=== PATIENT | female | born 1960 | race Caucasian/White ===

== ENCOUNTER 2020-10-30 20:00 | Outpatient (CLI) | payer MEDICARE, SELFPAY | END 2020-10-30 20:01 | disposition home or self-care (01) | LOC: SLEEP 10-31 08:34 | PROVIDERS: Family Provider Internal Medicine; Visit Provider Nurse Practitioner Family | DX: G47.33 Obstructive sleep apnea (adult) (pediatric) (principal); R40.0 Somnolence | CPT/HCPCS: 95810 ==

== ENCOUNTER 2020-11-12 12:54 | Outpatient (CLI) | payer MEDICARE, SELFPAY ==
--- NOTE | 2020-11-12 12:59 | XR_ITS ---
WS: [id number] LUMBAR SPINE TECHNIQUE: 3 views of the lumbar spine CLINICAL INFORMATION: DEGENERATIVE DISC DISEASE WITH RADICULOPATHY COMPARISON: None. FINDINGS: Mild lumbar curve convex left. Cholecystectomy clips. Moderate spondylitic changes. Disc space narrow ing worse at L3-L4 L4-L5 and L5-S1. Moderate facet arthropathy L4-L5 and L5-S1. Aortic calcification. Slight anterolisthesis L4 on L5 measuring 4 mm. XR/XR lumbar spine 2-3V* [id number] IMPRESSION: 1. Mild lumbar curve convex left. 2. Disc space narrowing worse at L3-L4 L4-L5 and L5-S1. 3. Moderate facet arthropathy L4-L5 and L5-S1. 4. Grade 1 anterolisthesis L4 on L5 measuring 4 mm.
== END 2020-11-12 12:55 | disposition home or self-care (01) ==
PROVIDERS: PCP Internal Medicine; Visit Provider Internal Medicine
DX: M51.16 Intervertebral disc disorders with radiculopathy, lumbar region (principal); M47.816 Spondylosis without myelopathy or radiculopathy, lumbar region; M47.817 Spondylosis without myelopathy or radiculopathy, lumbosacral region
CPT/HCPCS: 72100

== ENCOUNTER 2021-03-09 20:00 | Outpatient (CLI) | payer MEDICARE, SELFPAY | END 2021-03-09 20:01 | disposition home or self-care (01) | LOC: SLEEP 03-10 07:34 | PROVIDERS: PCP Internal Medicine; Visit Provider Nurse Practitioner Family | DX: G47.33 Obstructive sleep apnea (adult) (pediatric) (principal) | CPT/HCPCS: 95811 ==

== ENCOUNTER 2022-04-26 06:00 | Outpatient (RCR) | payer MEDICARE, SELFPAY | END 2022-05-11 23:59 | disposition home or self-care (01) | LOC: SPT 06:00 | PROVIDERS: PCP Internal Medicine; Visit Provider Internal Medicine | DX: M51.17 Intervertebral disc disorders with radiculopathy, lumbosacral region (principal) | CPT/HCPCS: 97113; 97161 ==

== ENCOUNTER 2022-05-12 06:00 | Outpatient (RCR) | payer MEDICARE, SELFPAY | END 2022-06-11 23:59 | disposition home or self-care (01) | LOC: SPT 06:00 | PROVIDERS: PCP Internal Medicine; Visit Provider Internal Medicine | DX: M51.17 Intervertebral disc disorders with radiculopathy, lumbosacral region (principal) | CPT/HCPCS: 97113 ==

== ENCOUNTER 2022-07-02 11:37 | Emergency (ER) | payer MEDICARE, SELFPAY ==
[2022-07-02] VITALS (39 sets, daily range): BP systolic 121–153; BP diastolic 65–88; PULSE 104–128; RESP 10–52; TEMP 36.9; O2SAT 90–96
--- NOTE | 2022-07-02 11:49 | ECG_ITS ---
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 Measurements Intervals Wayne Rate: 116 P: 12 AR: 163 QRS: -6 QRSD: 95 T: 38 QT: 311 QTc: 433 Interpretive Statements SINUS TACHYCARDIA ABNORMAL RHYTHM ECG Compared to ECG 07/22/2014 23:02:39 Sinus rhythm no longer present Electronically Signed On 07-02-2022 22:07:15 CDT by Lalito Pierson M.D. [id number]
--- NOTE | 2022-07-02 12:04 | XRR_ITS ---
PROCEDURE INFORMATION: Exam: XR Chest Exam date and time: 07/02/2022 12:19 PM Age: 62 years old Clinical indication: Pain; Angina pectoris; Additional info: Cp TECHNIQUE: Imaging protocol: Radiologic exam of the chest. Views: 1 view. COMPARISON: No relevant prior studies available. FINDINGS: Lungs: Unremarkable. No consolidation. Pleural spaces: Unremarkable. No pleural effusion. No pneumothorax. Heart/Mediastinum: Unremarkable. No cardiomegaly. Bones/joints: Unremarkable. XR/XR chest 1V portable [id number] IMPRESSION: No acute findings.
--- NOTE | 2022-07-02 12:27 | PC.NURSE ---
PT PLACED ON CONTINUOUS SPO2, NIBP, AND CM.
[2022-07-02 12:34] LABS: Basophils % 0.4 %; Eosinophils # 0.1 10^3/uL (0.0-0.8); Eosinophils % 2.4 %; Hematocrit 42.3 % (37.0-47.0); Hemoglobin 14.2 g/dL (11.5-15.3); Lymphocytes % 35.6 %; Mean Corpuscular HGB Conc 33.6 g/dL (30.0-36.0); Mean Corpuscular Hemoglobin 27.9 pg (28.0-34.0); Mean Corpuscular Volume 83.1 fl (81-99); Mean Platelet Volume 9.4 fL (7.4-10.4); Monocytes # 0.6 10^3/uL (0.2-0.9); Monocytes % 11.3 %; Neutrophils # 2.74 10^3/uL (1.8-7.7); Neutrophils % 49.9 %; Nucleated Red Blood Cells % 0 %; Platelet Count 260 10^3/cmm (130-400); Red Blood Count 5.09 10^6/uL (4.1-5.3); Red Cell Distribution Width 12.6 % (12.1-15.1); White Blood Count 5.5 10^3/uL (4.0-10.0)
--- NOTE | 2022-07-02 12:44 | ED_ITS ---
HPI - Chest Pain General: Chief Complaint: Chest Pain Stated Complaint: Abnormal EKG, Heaviness in chest History of Present Illness: Patient with a history of breast cancer status post bilateral mastectomy in remission since 2019, diabetes with poor control despite Trulicity and metform in, HLD presents the emergency department with complaint of chest heaviness that started last night. Patient states that for the last 4 days she has had an upper respiratory infection with a dry cough and fever. She went to see her primary care doctor this morning to see if she needed antibiotics since she has a girls trip planned this weekend and did not want to be sick on the trip. Her PCP performed an EKG and was concerned about EKG changes and sent her to the emergency department. She attributes her chest heaviness to her upper respiratory infection. She describes the chest pain as a heaviness that is located in her sternal region, does not radiate, is not exertional, and is not pleuritic. She states it is associated with shortness of breath, denies any associated nausea, vomiting, or diaphoresis. She also endorses associated lightheadedness. She states that her symptoms started last night while she was laying in bed during a coughing fit. She states that her symptoms completely resolved when she put on her CPAP, and are worse when she coughs. No other modifying factors, no other associated symptoms. Review of Systems General: Reports: 10 or more systems reviewed and unremarkable except in HPI and below Physical Exam Const: COMMON NORMALS: no acute distress and patient oriented x3 GENERAL APPEARANCE: cooperative and well kempt NUTRITIONAL APPEARANCE: obese centrally obese ORIENTATION/CONSCIOUSNESS: Yes awake HENMT: COMMON NORMALS: normocephalic, atraumatic, hearing grossly normal bilaterally, external ears normal and Normal external nose present HEAD & SCALP: normocephalic and atraumatic FACE & SINUS: normal facial exam NOSE: Normal external nose present EXTERNAL EAR: Yes external ears normal MOUTH: Normal oral and palatal mucosa present THROAT: posterior oropharynx normal Eye: COMMON NORMALS: Equal, round and reactive pupils present and EOMs intact bilaterally PUPIL: Yes Equal, round and reactive pupils present Neck/C-Spine: COMMON NORMALS: supple GENERAL: Yes normal visual inspection CERVICAL SPINE: No Cervical spine tenderness and No step off deformity Chest: Breast/axilla inspection: Yes Other (Status post bilateral mastectomy) Resp: COMMON NORMALS: normal respiratory effort, No retractions, No use of accessory muscles and clear to auscultation bilaterally AUSCULTATION: clear to auscultation bilaterally Cardio: COMMON NORMALS: regular rhythm and Peripheral pulses 2+ throughout RATE: tachycardic RHYTHM: regular rhythm PERIPHERAL PULSES: Peripheral pulses 2+ throughout GI: COMMON NORMALS: Normal to inspection, nondistended, normoactive bowel madisyn nds present, Soft to palpation and non-tender PALPATION: Yes Soft to palp ation : COMMON NORMALS: Yes no CVA tenderness BLADDER/KIDNEY EXAM: Yes no CVA tenderness Back/Pelvis: COMMON NORMALS: no CVA tenderness and thoracic and lumbar spine normal to inspection THORACIC SPINE/UPPER BACK: Yes normal to inspection LUMBAR SPINE/LOWER BACK: Yes normal to inspection Extremity: COMMON NORMALS: normal to inspection, full ROM, no clubbing, cyanosis or edema and no calf tenderness GENERAL: No clubbing and No cyanosis Neuro: COMMON NORMALS: patient oriented x3, moves all extremities, no focal motor deficits and no sensory deficits noted Psych: COMMON NORMALS: mental status grossly normal, Normal thought process present, cooperative and activity/motor behavior normal APPEARANCE: Yes well kempt ATTITUDE: Yes calm THOUGHT PROCESS: Normal thought process present Skin: COMMON NORMALS: no rashes or lesions noted GENERAL SKIN EXAM: no r ashes or lesions noted Course Reevaluation(s): Reevaluation #1: Patient continues to remain tachycardic, and slightly more tachycardic than previously, despite negative D-dimer, relatively high suspicion for pulmonary embolism, will obtain CT angiogram PE study despite negative D-dimer due to patient being high risk and ongoing tachycardia. We will also start IV fluid bolus, however patient does not clinically appear to be dehydrated. Also she is afebrile, no concern that her tachycardia is a result of elevated temperature. Time: 13:50 Reevaluation #2: Concern for pneumonia on CT, no evidence of PE, will start Rocephin and azithromycin here in the emergency department, patient can be discharged home on amoxicillin. Time: 15:43 Vital Signs: Vital signs: Vital Signs Temperature 98.4 F 07/02/22 11:49 Pulse Rate 117 H 07/02/22 11:44 Respiratory Rate 16 07/02/22 11:44 Blood Pressure 144/75 07/02/22 11:44 Pulse Oximetry 94 07/02/22 11:44 Oxygen Delivery Me thod Room Air 07/02/22 11:44 MDM - Chest Pain Medical Decision Making Despite the fact that the patient is in remission from breast cancer, she is at increased risk for pulmonary embolism especially given her description of her symptoms. Additional considerations include ACS, she is high risk for atypical presentation of ACS given that she is an elderly white female with diabetes. Also considered is pneumothorax given that the patient's symptoms started while coughing. Will perform full work-up. Lab Data 07/02/22 12:10 07/02/22 12:10 Radiology Impressions Chest X-Ray 07/02/22 12:04 IMPRESSION: No acute findings. Chest CTA 07/02/22 13:49 IMPRESSION: 1. Negative for pulmonary embolus. 2. Patchy bibasilar left greater than right infiltrates suspected. 3. Hepatic steatosis. 4. Ascending thoracic aorta somewhat prominent at 3.4 cm. Laboratory Results WBC 5.5 10^3/uL (4.0-10.0) 07/02/22 12:10 RBC 5.09 10^6/uL (4.1-5.3) 07/02/22 12:10 Hgb 14.2 g/dL (11.5-15.3) 07/02/22 12:10 Hct 42.3 % (37.0-47.0) 07/02/22 12:10 MCV 83.1 fl (81-99) 07/02/22 12:10 MCH 27.9 pg (28.0-34.0) L 07/02/22 12:10 MCHC 33.6 g/dL (30.0-36.0) 07/02/22 12:10 RDW 12.6 % (12.1-15.1) 07/02/22 12:10 Plt Count 260 10^3/cmm (130-400) 07/02/22 12:10 MPV 9.4 fL (7.4-10.4) 07/02/22 12:10 Neut % (Auto) 49.9 % 07/02/22 12:10 Lymph % (Auto) 35.6 % 07/02/22 12:10 [place] % (Auto) 11.3 % 07/02/22 12:10 Eos % (Auto) 2.4 % 07/02/22 12:10 Baso % (Auto) 0.4 % 07/02/22 12:10 Neut # (Auto) 2.74 10^3/uL (1.8-7.7) 07/02/22 12:10 Lymph # (Auto) 2.0 10^3/uL (0.8-4.8) 07/02/22 12:10 [place] # (Auto) 0.6 10^3/uL (0.2-0.9) 07/02/22 12:10 Eos # (Auto) 0.1 10^3/uL (0.0-0.8) 07/02/22 12:10 Baso # (Auto) 0.0 10^3/uL (0.0-0.1) 07/02/22 12:10 Nucleated RBC % (auto) 0 % 07/02/22 12:10 Nucleated RBCs # 0.0 /100WBC 07/02/22 12:10 PT 12.40 SECONDS (12.1-14.9) 07/02/22 12:10 INR 0.90 (0.8-1.2) 07/02/22 12:10 APTT 27.8 SECONDS (23.9-36.7) 07/02/22 12:10 D-Dimer 0.38 ug/mIFEU (0-0.59) 07/02/22 12:10 Sodium 132 mmol/L (136-145) L 07/02/22 12:10 Potassium 3.5 mmol/L (3.5-5.1) 07/02/22 12:10 Chloride 93 mmol/L (98-107) L 07/02/22 12:10 Carbon Dioxide 25 mmol/L (22-29) 07/02/22 12:10 Anion Gap 17.5 (5-19) 07/02/22 12:10 BUN 7 mg/dL (8-23) L 07/02/22 12:10 Creatinine 0.7 mg/dL (0.5-0.9) 07/02/22 12:10 GFR Calculation 85.4 mL/min (90-130) L 07/02/22 12:10 Glucose 158 mg/dL (65-115) H 07/02/22 12:10 Calculated Osmolality 275 mOsm/kg (285-295) L 07/02/22 12:10 Calcium 9.0 mg/dL (8.5-10.5) 07/02/22 12:10 Total Bilirubin 0.3 mg/dL (0.15-1.2) 07/02/22 12:10 AST 33 U/L (0-32) H 07/02/22 12:10 ALT 42 U/L (0-33) H 07/02/22 12:10 Alkaline Phosphatase 115 U/L (35-105) H 07/02/22 12:10 Troponin T Baseline 6 ng/L (0-10) 07/02/22 12:10 Troponin T 120 Minute 6.00 ng/L (0-10) 07/02/22 14:45 Delta Troponin T 0 ABS# (0-10) 07/02/22 14:45 NT-Pro-B Natriuret Pep 36 pg/mL (0-125) 07/02/22 12:10 Total Protein 7.4 g/dL (6.6-8.7) 07/02/22 12:10 Albumin 4.4 g/dL (3.5-5.2) 07/02/22 12:10 Globulin 3.0 g/dL (1.3-4.6) 07/02/22 12:10 Urine Color Yellow (Yellow) 07/02/22 12:24 Urine Appearance Clear (CLEAR) 07/02/22 12:24 Urine pH 6 (5-7) 07/02/22 12:24 Ur Specific [place] 1.015 (1.005-1.030) 07/02/22 12:24 Urine Protein Neg (Negative) 07/02/22 12:24 Urine Glucose (UA) Trace (Normal) H 07/02/22 12:24 Urine Ketones Negative (Negative) 07/02/22 12:24 Urine Blood Neg (Negative) 07/02/22 12:24 Urine Nitrate Negative (Negative) 07/02/22 12:24 Urine Bilirubin Neg (Negative) 07/02/22 12:24 Urine Urobilinogen Neg mg/dL (Negative) 07/02/22 12:24 Ur Leukocyte Esterase Negative (Negative) 07/02/22 12:24 Influenza Type A Ag negative (Negative) 07/02/22 12:15 Influenza Type B Ag negative (Negative) 07/02/22 12:15 SARS-CoV-2 Ag (Rapid) negative (Negative) 07/02/22 12:15 Discharge Plan Discharge Patient Disposition: Home Clinical Impression: Chest pain Qualifiers: Chest pain type: unspecified Qualified Code(s): R07.9 - Chest pain, unspecified Pneumonia Qualifiers: Pneumonia type: due to unspecified organism Laterality: bilateral Lung location: unspecified part of lung Qualified Code(s): J18.9 - Pneumonia, unspecified organism Condition: Stable Prescriptions: New amoxicillin 500 mg tablet 1,000 mg PO TID 5 Days Qty: 30 0RF No Action atorvastatin 40 mg tablet 40 mg PO QPM glyburide 5 mg tablet 5 mg PO DAILY pantoprazole 40 mg tablet,delayed release (DR/EC) 40 mg PO DAILY gabapentin 300 mg capsule See Rx Instructions .ROUTE .COMPLEX Rx Instructions: 300 mg qam and 600 mg qpm hydrochlorothiazide 25 mg tablet 25 mg PO DAILY benazepril 10 mg tablet 10 mg PO DAILY metformin 500 mg tablet extended release 24 hr 500 mg PO BID Trulicity 3 mg/0.5 mL pen injector 3 mg SUBCUT Q7D Rx Instructions: ON TUESDAY Aspir-81 81 mg Tablet,Delayed Release (Dr/Ec) 81 mg PO DAILY potassium citrate 99 mg Capsule 99 mg PO DAILY PRN (Reason: leg cramps) Discharge Orders: Discharge ED (Routine); Ordered 07/02/22 Ordered By: Alvin Urbina Referrals: Juana Kimball MD [Primary Care Provider] - 1-3 days RAZA Pandya [Emergency Department] - (as needed) Patient Instructions: Chest Pain (ED), Pneumonia (ED) 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
[2022-07-02 12:48] LABS: Add Urine Microscopic? NO; Charge for UA Resulting for Rev
[2022-07-02 12:48] LABS: Influenza A by IFA negative (Negative); Influenza B by IFA negative (Negative); SARS Covid-2 Antigen negative (Negative)
[2022-07-02 12:54] LABS: Bilirubin Urine Neg (Negative); Blood Urine Neg (Negative); Glucose Urine UA Trace (Normal); Ketones Urine Negative (Negative); Leukocyte Esterase Urine Negative (Negative); Nitrate Urine Negative (Negative); Protein Urine Neg (Negative); Specific Gravity, Urine 1.015 (1.005-1.030); Urine Appearance Clear (CLEAR); Urine Color Yellow (Yellow); Urobilinogen Urine Neg (Negative); pH Urine 6 (5-7)
[2022-07-02 12:56] LABS: Partial Thromboplastin Time 27.8 SECONDS (23.9-36.7)
[2022-07-02 12:58] LABS: D Dimer 0.38 ug/mIFEU (0-0.59)
[2022-07-02 12:59] LABS: Troponin(5th) Baseline 6 ng/L (0-10)
[2022-07-02 13:08] LABS: Alanine Aminotransferase 42 U/L (0-33); Albumin Level 4.4 g/dL (3.5-5.2); Alkaline Phosphatase 115 U/L (35-105); Anion Gap 17.5 (5-19); Aspartate Amino Transferase 33 U/L (0-32); Blood Urea Nitrogen 7 mg/dL (8-23); Carbon Dioxide 25 mmol/L (22-29); Chloride 93 mmol/L (98-107); Glomerular Filtration Rate 85.4 mL/min (90-130); Glucose 158 mg/dL (65-115); NT Pro B Type Natriuretic Pept 36 pg/mL (0-125); Osmolality Calculated 275 mOsm/kg (285-295); Potassium 3.5 mmol/L (3.5-5.1); Sodium 132 mmol/L (136-145); Total Bilirubin 0.3 mg/dL (0.15-1.2); Total Protein 7.4 g/dL (6.6-8.7)
--- NOTE | 2022-07-02 13:49 | CTR_ITS ---
PROCEDURE INFORMATION: Exam: CTA Chest With Contrast Exam date and time: 07/02/2022 1:57 PM Age: 62 years old Clinical indication: Other: Tachycardia; Prior surgery; Surgery type: Bi mastectomy; Additional info: High risk for pe, neg dimer TECHNIQUE: Imaging protocol: Computed tomographic angiography of the chest with contrast. 3D rendering (Not supervised by radiologist): MIP and/or 3D reconstructed images were created by the technologist. Radiation optimization: All CT scans at this facility use at least one of these dose optimization techniques: automated exposure control; mA and/or kV adjustment per patient size (includes targeted exams where dose is matched to clinical indication); or iterative reconstruction. Contrast material: OMNI 350; Contrast volume: 70 ml; Contrast route: INTRAVENOUS (IV); REPORTING DATA: Count of CT and Cardiac NM exams in prior 12 months: This patient has received 0 known CTs and 0 known cardiac nuclear medicine studies in the 12 months prior to the current study. COMPARISON: CR XR chest 1V portable [id number] 07/02/2022 12:19 PM RADIATION DOSE METRICS: Total DLP (mGy-cm): 335.47 FINDINGS: Pulmonary arteries: Normal. No pulmonary emboli. Aorta: Ascending thoracic aorta somewhat prominent at 3.4 cm. Lungs: Patchy bibasilar left greater than right infiltrates suspected. Pleural spaces: Unremarkable. No pneumothorax. No pleural effusion. Heart: Unremarkable. No cardiomegaly. No pericardial effusion. Lymph nodes: Unremarkable. No enlarged lymph nodes. Liver: Hepatic steatosis. Bones/joints: Unremarkable. No acute fracture. Soft tissues: Unremarkable. CT/CT angio chest PE protcl [id number] IMPRESSION: 1. Negative for pulmonary embolus. 2. Patchy bibasilar left greater than right infiltrates suspected. 3. Hepatic steatosis. 4. Ascending thoracic aorta somewhat prominent at 3.4 cm.
[2022-07-02] MEDS: iohexol 350 mg/mL 500 mL Btl (per mL) IV (13:59)
[2022-07-02] MEDS: lactated ringers 1,000 ML 999 ML IV (14:25)
[2022-07-02 15:33] LABS: Troponin 5 2HR Delta 0 ABS# (0-10)
[2022-07-02] MEDS: cefTRIAXone 1,000 MG in sodium chloride 0.9% (plus) 50 ML 100 MG IV (16:26)
[2022-07-02] MEDS: azithromycin 250 mg Tablet 500 MG PO (16:26)
== END 2022-07-02 16:47 | disposition home or self-care (01) ==
PROVIDERS: Emergency Provider Emergency Medicine; PCP Internal Medicine
DX: R07.9 Chest pain, unspecified (principal); J18.9 Pneumonia, unspecified organism; Z79.85 Long-term (current) use of injectable non-insulin antidiabetic drugs; Z79.84 Long term (current) use of oral hypoglycemic drugs; Z79.82 Long term (current) use of aspirin; Z20.822 Contact with and (suspected) exposure to COVID-19
CPT/HCPCS: 71045; 71275; 80053; 81003; 83880; 84484; 85025; 85378; 85610; 85730; 87426; 87804; 93005; 96374; 99285; J0696; J7120; Q0144; Q9967

== ENCOUNTER 2022-11-21 02:20 | Emergency (ER) | payer MEDICARE, SELFPAY ==
[2022-11-21 02:40] VITALS: BP 132/104; PULSE 115; RESP 18; TEMP 36.4; O2SAT 100; BMI 37.0
[2022-11-21 03:48] VITALS: BP 125/94; PULSE 97; RESP 16; O2SAT 99
[2022-11-21 03:53] VITALS: RESP 18
[2022-11-21] MEDS: ondansetron 2 mg/ML SDV 2 mL 4 MG IVP (03:53)
[2022-11-21] MEDS: morphine 4 mg/mL SDV 1 mL IVP ×2 (03:53→05:18)
[2022-11-21 04:12] LABS: Add Urine Microscopic? NO; Charge for UA Resulting for Rev
[2022-11-21 04:16] LABS: Basophils % 0.3 %; Eosinophils # 0.4 10^3/uL (0.0-0.8); Eosinophils % 3.3 %; Hematocrit 33.7 % (36-47); Lymphocytes # 2.8 10^3/uL (0.8-4.8); Lymphocytes % 24.1 %; Mean Corpuscular HGB Conc 33.2 g/dL (30-55); Mean Corpuscular Hemoglobin 28.1 pg (27-33); Mean Corpuscular Volume 84.5 fl (85-98); Mean Platelet Volume 8.3 fL (7.4-10.4); Monocytes # 0.5 10^3/uL (0.2-0.9); Monocytes % 4.5 %; Neutrophils # 7.73 10^3/uL (1.8-7.7); Neutrophils % 66.3 %; Nucleated Red Blood Cells % 0 %; Platelet Count 473 10^3/cmm (157-399); Red Blood Count 3.99 10^6/uL (3.85-5.65); Red Cell Distribution Width 13.7 % (12.1-15.1); White Blood Count 11.68 10^3/uL (3.29-11.43)
[2022-11-21 04:30] LABS: Alanine Aminotransferase 32 U/L (0-33); Albumin Level 4.3 g/dL (3.5-5.2); Alkaline Phosphatase 133 U/L (35-105); Anion Gap 14.7 (5-19); Aspartate Amino Transferase 25 U/L (0-32); Blood Urea Nitrogen 14 mg/dL (8-23); C Reactive Protein 9.1 mg/L (0.0-4.9); Calcium 9.4 mg/dL (8.5-10.5); Carbon Dioxide 31 mmol/L (22-29); Chloride 89 mmol/L (98-107); Erythrocyte Sedimentation Rate 12 mm/hr (0-15); Globulin 3.1 g/dL (1.3-4.6); Glomerular Filtration Rate 73.2 mL/min (90-130); Glucose 120 mg/dL (65-115); Osmolality Calculated 274 mOsm/kg (285-295); Potassium 3.7 mmol/L (3.5-5.1); Sodium 131 mmol/L (136-145); Total Bilirubin 0.3 mg/dL (0.15-1.2); Total Protein 7.4 g/dL (6.6-8.7)
[2022-11-21 04:30] LABS: Bilirubin Urine Neg (Negative); Blood Urine Neg (Negative); Glucose Urine UA Norm (Normal); Ketones Urine Negative (Negative); Leukocyte Esterase Urine Negative (Negative); Nitrate Urine Negative (Negative); Protein Urine Neg (Negative); Specific Gravity, Urine 1.005 (1.005-1.030); Urine Appearance Clear (CLEAR); Urine Color Colorless (Yellow); Urobilinogen Urine Neg (Negative); pH Urine 7 (5-7)
[2022-11-21 04:48] VITALS: BP 115/78; PULSE 98; RESP 16; O2SAT 95
[2022-11-21 05:18] VITALS: BP 145/95; PULSE 99; RESP 16; RESP 18; O2SAT 96
[2022-11-21] MEDS: ketorolac 30 mg/mL INJ IVP (05:19)
[2022-11-21 05:25] VITALS: BP 135/103; PULSE 95; RESP 16; O2SAT 98
--- NOTE | 2022-11-21 05:39 | ED_ITS ---
HPI - Back Pain/Injury General: Chief Complaint: Back Pain/Injury Stated Complaint: Back pain, post surgery 11/08 Time Seen by Provider: 11/21/22 03:09 History of Present Illness: 62-year-old female who is status post lumbar fusion surgery on 11/08. She is experienced a steady increase in pain over the last 2 days. She has burning sensation in her left thigh. She denies fever. No loss of function of bowel or bladder. No weakness. She has increased her activity, which she relates to the increase in pain. Hydrocodone was not working at home. Associated symptoms: Deny abdominal pain, chills, fever(s), nausea or vomiting Review of Systems Const: Denies: fever(s), chills or body aches Eyes: Denies: change in vision Card: Denies: chest pain or palpitations Resp: Denies: dyspnea, productive cough, non-productive cough or wheezing GI: Denies: abdominal pain, nausea, vomiting, diarrhea or hematochezia : Denies: difficulty voiding Skin/Breast: Denies: rash Neuro: Denies: headache(s) or weakness in extremities Physical Exam Const: COMMON NORMALS: no acute distress GENERAL APPEARANCE: cooperative; not ill appearing and not frail appearing HENMT: COMMON NORMALS: normocephalic, atraumatic and Normal external nose present HEAD & SCALP: normocephalic and atraumatic FACE & SINUS: normal facial exam and face symmetric NOSE: Normal external nose present Eye: COMMON NORMALS: Equal, round and reactive pupils present and EOMs intact bilaterally PUPIL: Yes Equal, round and reactive pupils present Neck/C-Spine: GENERAL: Yes trachea midline Chest: CHEST: Yes Symmetrical chest wall rise Resp: COMMON NORMALS: normal respiratory effort, No retractions, No use of accessory muscles and clear to auscultation bilaterally AUSCULTATION: clear to auscultation bilaterally Cardio: COMMON NORMALS: regular rate and regular rhythm RATE: regular rate RHYTHM: regular rhythm GI: COMMON NORMALS: Normal to inspection, nondistended, normoactive bowel sounds present Back/Pelvis: OTHER: Examination the lumbar spine reveals minimal tenderness. Incisions are closed, healed without redness/cellulitis or drainage. Extremity: COMMON NORMALS: no pedal edema Neuro: TICO COMA SCALE: document GCS findings [place] coma scale eye opening: Spontaneous [place] coma scale verbal response: Orientated [place] coma scale motor response: Obey commands Am[place] coma scale total score: 15 SENSORY EXAM: Yes extremities (intact) Psych: COMMON NORMALS: speech normal SPEECH: Yes normal speech Skin: COMMON NORMALS: no rashes or lesions noted GENERAL SKIN EXAM: no rashes or lesions noted Course Vital Signs: Vital signs: Vital Signs Temperature 97.6 F 11/21/22 02:40 Pulse Rate 95 11/21/22 05:25 Respiratory Rate 16 11/21/22 05:25 Blood Pressure 135/103 11/21/22 05:25 Pulse Oximetry 98 11/21/22 05:25 Oxygen Delivery Me thod Room Air 11/21/22 04:48 MDM - Back Pain/Injury Medical Decision Making Patient's pain is controlled after 4 mg of morphine IV. Her hemoglobin is 11.2. White blood cell count is 11.7. Her inflammatory markers are normal. Other laboratory is not remarkable. Urinalysis is negative. With improvement in her symptoms, no toxic signs on exam or laboratory, she will be discharged. She has a follow-up appointment with her surgeon day after tomorrow. She knows to return in the meantime for any worsening symptoms. She will stop her hydrocodone. She will be prescribed oxycodone 7.5. Labs 11/21/22 03:57 11/21/22 03:57 Laboratory Results WBC 11.68 10^3/uL (3.29-11.43) H 11/21/22 03:57 RBC 3.99 10^6/uL (3.85-5.65) 11/21/22 03:57 Hgb 11.20 g/dL (11.27-16.99) L 11/21/22 03:57 Hct 33.7 % (36-47) L 11/21/22 03:57 MCV 84.5 fl (85-98) L 11/21/22 03:57 MCH 28.1 pg (27-33) 11/21/22 03:57 MCHC 33.2 g/dL (30-55) 11/21/22 03:57 RDW 13.7 % (12.1-15.1) 11/21/22 03:57 Plt Count 473 10^3/cmm (157-399) H 11/21/22 03:57 MPV 8.3 fL (7.4-10.4) 11/21/22 03:57 Neut % (Auto) 66.3 % 11/21/22 03:57 Lymph % (Auto) 24.1 % 11/21/22 03:57 [place] % (Auto) 4.5 % 11/21/22 03:57 Eos % (Auto) 3.3 % 11/21/22 03:57 Baso % (Auto) 0.3 % 11/21/22 03:57 Neut # (Auto) 7.73 10^3/uL (1.8-7.7) H 11/21/22 03:57 Lymph # (Auto) 2.8 10^3/uL (0.8-4.8) 11/21/22 03:57 [place] # (Auto) 0.5 10^3/uL (0.2-0.9) 11/21/22 03:57 Eos # (Auto) 0.4 10^3/uL (0.0-0.8) 11/21/22 03:57 Baso # (Auto) 0.0 10^3/uL (0.0-0.1) 11/21/22 03:57 Nucleated RBC % (auto) 0 % 11/21/22 03:57 Nucleated RBCs # 0.0 /100WBC 11/21/22 03:57 ESR 12 mm/hr (0-15) 11/21/22 03:57 Sodium 131 mmol/L (136-145) L 11/21/22 03:57 Potassium 3.7 mmol/L (3.5-5.1) 11/21/22 03:57 Chloride 89 mmol/L (98-107) L 11/21/22 03:57 Carbon Dioxide 31 mmol/L (22-29) H 11/21/22 03:57 Anion Gap 14.7 (5-19) 11/21/22 03:57 BUN 14 mg/dL (8-23) 11/21/22 03:57 Creatinine 0.8 mg/dL (0.5-0.9) 11/21/22 03:57 GFR Calculation 73.2 mL/min (90-130) L 11/21/22 03:57 Glucose 120 mg/dL (65-115) H 11/21/22 03:57 Calculated Osmolality 274 mOsm/kg (285-295) L 11/21/22 03:57 Calcium 9.4 mg/dL (8.5-10.5) 11/21/22 03:57 Total Bilirubin 0.3 mg/dL (0.15-1.2) 11/21/22 03:57 AST 25 U/L (0-32) 11/21/22 03:57 ALT 32 U/L (0-33) 11/21/22 03:57 Alkaline Phosphatase 133 U/L (35-105) H 11/21/22 03:57 C-Reactive Protein 9.1 mg/L (0.0-4.9) H 11/21/22 03:57 Total Protein 7.4 g/dL (6.6-8.7) 11/21/22 03:57 Albumin 4.3 g/dL (3.5-5.2) 11/21/22 03:57 Globulin 3.1 g/dL (1.3-4.6) 11/21/22 03:57 Urine Color Colorless (Yellow) 11/21/22 03:50 Urine Appearance Clear (CLEAR) 11/21/22 03:50 Urine pH 7 (5-7) 11/21/22 03:50 Ur Specific [place] 1.005 (1.005-1.030) 11/21/22 03:50 Urine Protein Neg (Negative) 11/21/22 03:50 Urine Glucose (UA) Norm (Normal) 11/21/22 03:50 Urine Ketones Negative (Negative) 11/21/22 03:50 Urine Blood Neg (Negative) 11/21/22 03:50 Urine Nitrate Negative (Negative) 11/21/22 03:50 Urine Bilirubin Neg (Negative) 11/21/22 03:50 Urine Urobilinogen Neg mg/dL (Negative) 11/21/22 03:50 Ur Leukocyte Esterase Negative (Negative) 11/21/22 03:50 Discharge Plan Discharge Patient Disposition: Home Clinical Impression: Lumbar radiculopathy, Postoperative back pain Condition: Stable Prescriptions: New Percocet 7.5-325 mg tablet 1 tab PO Q6H PRN (Reason: pain) Qty: 10 0RF No Action atorvastatin 40 mg tablet 40 mg PO QPM glyburide 5 mg tablet 5 mg PO DAILY pantoprazole 40 mg tablet,delayed release (DR/EC) 40 mg PO DAILY gabapentin 300 mg capsule See Rx Instructions .ROUTE .COMPLEX Rx Instructions: 300 mg qam and 600 mg qpm hydrochlorothiazide 25 mg tablet 25 mg PO DAILY benazepril 10 mg tablet 10 mg PO DAILY metformin 500 mg tablet extended release 24 hr 500 mg PO BID Trulicity 3 mg/0.5 mL pen injector 3 mg SUBCUT Q7D Rx Instructions: ON TUESDAY Aspir-81 81 mg Tablet,Delayed Release (Dr/Ec) 81 mg PO DAILY potassium citrate 99 mg Capsule 99 mg PO DAILY PRN (Reason: leg cramps) Discharge Orders: Discharge ED (Routine); Ordered 11/21/22 Ordered By: Keven Heck Referrals: Juana Kimball MD [Primary Care Provider] - Patient Instructions: Opioid Safety, Pain Management Activity Restrictions/Additional Instructions: Return for fever greater than 100, vomiting, worsening pain despite treatment, significant weakness, other concerning symptoms. Keep your appointment as scheduled on Tuesday with your surgeon. Let them know you were seen here. 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
== END 2022-11-21 05:33 | disposition home or self-care (01) ==
PROVIDERS: Emergency Provider Emergency Medicine; PCP Internal Medicine
DX: G89.18 Other acute postprocedural pain (principal); M54.16 Radiculopathy, lumbar region; Z98.1 Arthrodesis status
CPT/HCPCS: 80053; 81003; 85025; 85651; 86140; 96374; 96375; 96376; 99284; J1885; J2270; J2405

== ENCOUNTER → 2023-11-03 10:15 | Outpatient (BNVA) | payer MEDICARE, SELFPAY | PROVIDERS: PCP Internal Medicine; Visit Provider Specialist | DX: R20.0 Anesthesia of skin (principal); R20.2 Paresthesia of skin; G56.01 Carpal tunnel syndrome, right upper limb | CPT/HCPCS: 95910 ==

== ENCOUNTER → 2023-12-27 09:05 | Outpatient (BNVA) | payer MEDICARE, SELFPAY | PROVIDERS: PCP Internal Medicine; Visit Provider Student in an Organized Health Care Education/Training Program | DX: G56.03 Carpal tunnel syndrome, bilateral upper limbs (principal) | CPT/HCPCS: 73130; 99204 ==

== ENCOUNTER 2024-02-23 06:54 | Day surgery (SDC) | payer MEDICARE, SELFPAY ==
[2024-02-23] VITALS (7 sets, daily range): BP systolic 91–130; BP diastolic 59–78; PULSE 92–121; RESP 17–20; TEMP 37–37.2; O2SAT 92–94; BMI 38.2
[2024-02-23] MEDS: sodium chloride 0.9% 1,000 ML 30 ML IV (07:38)
[2024-02-23] MEDS: ketorolac 30 mg/mL INJ IVP (07:38)
[2024-02-23] MEDS: acetaminophen 1,000 MG/100 ML PIGGYBACK 400 MG IV (07:39)
--- NOTE | 2024-02-23 07:42 | P.HP_ITS ---
Same Day Surgery H&P Indication for Procedure/HPI DATE OF PROCEDURE: February 23, 2024 CHIEF COMPLAINT/INDICATIONFOR SURGICAL PROCEDURE: Right carpal tunnel syndrome PREOP DIAGNOSIS: Right carpal tunnel syndrome PLANNED PROCEDURE: Operation Date: 02/23/24 08:30 Proposed Procedures p Carpal Tunnel Release(Right) - Jose Reid DO Medications/Allergies* Home Medications Medication Instructions Recorded Confirmed Type aspirin 81 mg tablet,delayed 81 mg PO DAILY 07/02/22 02/22/24 History release atorvastatin 40 mg tablet 40 mg PO QPM 07/02/22 02/22/24 History benazepril 10 mg tablet 10 mg PO DAILY 07/02/22 02/22/24 History gabapentin 300 mg capsule See Rx Instructions .Route .COMPLEX 07/02/22 02/22/24 History glyburide 5 mg tablet 5 mg PO DAILY 07/02/22 02/22/24 History hydrochlorothiazide 25 mg tablet 25 mg PO DAILY 07/02/22 02/22/24 History metformin 500 mg tablet,extended 500 mg PO BID 07/02/22 02/22/24 History release 24 hr pantoprazole 40 mg tablet,delayed 40 mg PO DAILY 07/02/22 02/22/24 History release potassium citrate 99 mg capsule 99 mg PO DAILY PRN leg cramps 07/02/22 02/22/24 History semaglutide 0.25 mg or 0.5 mg (2 0.25 mg SUBCUT .WEEKLY 12/27/23 02/22/24 History mg/3 mL) subcutaneous pen injector (Ozempic) Allergies/Adverse Reactions Allergy/AdvReac Type Severity Reaction Status Date / Time No Known Allergies Allergy Verified 01/31/24 12:28 Current Medications: Generic Name Dose Route Start Last Admin Trade Name Freq PRN Reason Stop Dose Admin Sodium Chloride 1,000 mls @ 30 mls/hr 02/23/24 07:15 02/23/24 07:38 Sodium Chloride 0.9% IV 02/24/24 07:14 30 mls/hr .Q24H NITHIN Administration Pertinent History/Comorbid Conditions* Social History Smoking and tobacco/nicotine status: never used tobacco/nicotine Pertinent Exam Findings alert, oriented x 3, operative site marked and procedure specific exam findings Please refer to detailed orthopedic examination on 12/26/2023 Bilateral upper extremity exam: Normal C-spine ROM? No pain. Negative Spurling's Negative Tinel's @ shoulder. Normal ROM Negative Tinel's @ elbow. Normal ROM Positive median compression test, bilaterally Positive Tinel's, bilaterally Positive Phalen's bilaterally. Thenar weakness bilaterally. Subtle atrophy noted, right No atrophy noted, left No Intrinsic atrophy noted bilaterally. Good intrinsic strength. Recommendations Surgery/Procedure today Other Plans: Plan to proceed to the OR today for right carpal tunnel release. Patient understands the ins and outs procedure the risk benefits complication alternatives surgery and through shared decision making lacks proceed with surgical intervention. All questions answered at this time. Coding Level of Care Code Acute Code for [facility] Mariel
--- NOTE | 2024-02-23 07:57 | P.ANESASSM_ITS ---
Pre-Anesthetic Assessment Height/Weight: Height 5 ft Weight 196 lb Temp Pulse Resp BP Pulse Ox O2 Del Method 98.9 F 121 H 20 H 130/78 94 Room Air 02/23/24 07:21 02/23/24 07:21 02/23/24 07:21 02/23/24 07:21 02/23/24 07:21 02/23/24 07:28 Preop Diagnosis: Right carpal tunnel syndrome Operation Date: 02/23/24 08:30 Proposed Procedures p Carpal Tunnel Release(Right) - Jose Reid, DO Was Beta Axel taken within 24 hours: N/A Was Clonidine taken within 24 hours: N/A Last intake: Intake Last Liquid Date 02/22/24 Last Liquid Time 22:00 Last Solid Date 02/22/24 Last Solid Time 10:00 Social No alcohol and No tobacco Exam alert, oriented x 3, clear to auscultation bilaterally and regular rate & rhythm Airway Submandibular: within normal limits Cervical ROM: within normal limits Mallampati: Class II Dentition: full Comments: Comments: Few missing teeth, denies any loose Anesthetic Plan ASA status: 3 Anesthesia: MAC Other: No prior issues with anesthesia, previous procedure was canceled due to patient taking her semaglutide NPO since yesterday History of type 2 diabetes on metformin and semaglutide. Has not taken this in the past month resulting in a BS of 209 today Hypertension on HCTZ and benazepril Patient does note a dry cough the last few days, denies any fevers/chills or SOB Prior EKG showing sinus tachycardia METs greater than 4 Plan for MAC anesthetic with local via surgeon Medications/Allergies Home Medications Medication Instructions Recorded Confirmed Last Taken Type aspirin 81 mg tablet,delayed 81 mg PO DAILY 07/02/22 02/22/24 02/01/24 History release atorvastatin 40 mg tablet 40 mg PO QPM 07/02/22 02/22/24 02/14/24 History benazepril 10 mg tablet 10 mg PO DAILY 07/02/22 02/22/24 02/14/24 History gabapentin 300 mg capsule See Rx Instructions .Route .COMPLEX 07/02/22 02/22/24 02/15/24 History glyburide 5 mg tablet 5 mg PO DAILY 07/02/22 02/22/24 02/14/24 History hydrochlorothiazide 25 mg tablet 25 mg PO DAILY 07/02/22 02/22/24 02/15/24 History metformin 500 mg tablet,extended 500 mg PO BID 07/02/22 02/22/24 02/14/24 History release 24 hr pantoprazole 40 mg tablet,delayed 40 mg PO DAILY 07/02/22 02/22/24 02/15/24 History release potassium citrate 99 mg capsule 99 mg PO DAILY PRN leg cramps 07/02/22 02/22/24 01/05/24 History semaglutide 0.25 mg or 0.5 mg (2 0.25 mg SUBCUT .WEEKLY 12/27/23 02/22/24 01/29/24 History mg/3 mL) subcutaneous pen injector ([employer]) Allergies Allergy/AdvReac Type Severity Reaction Status Date / Time No Known Allergies Allergy Verified 01/31/24 12:28 Current Medications Generic Name Dose Route Start Last Admin Trade Name Freq PRN Reason Stop Dose Admin Sodium Chloride 1,000 mls @ 30 mls/hr 02/23/24 07:15 02/23/24 07:38 Sodium Chloride 0.9% IV 02/24/24 07:14 30 mls/hr .Q24H NITHIN Administration PFSH Anesthesia Social History Smoking and tobacco/nicotine status: never used tobacco/nicotine Data Anesthesia Cardiac Studies: No Data to Display
[2024-02-23] MEDS: ceFAZolin 2,000 mg SDV 2000 MG IVP (08:12)
[2024-02-23] MEDS: ROPivacaine 0.5% SDV 30 mL 25 MG INJECTION (08:35)
[2024-02-23] MEDS: lidocaine-epi 1% 20 mL INJ 5 ML INJECTION (08:35)
--- NOTE | 2024-02-23 08:43 | P.BOP_ITS ---
Date of Procedure: 02/23/2024 Surgeon: Jose Reid DO [employer] Operator(s): None Procedure(s) performed: Right carpal tunnel release Findings of the procedure(s): Patient had right carpal tunnel syndrome underwent procedure as planned without issues or complications Estimated blood loss: 2 mL Specimen(s) removed: None Post-operative diagnosis: right carpal tunnel syndrome
--- NOTE | 2024-02-23 08:44 | PM.OP ---
Operative Report Date of procedure: February 23, 2024 Surgeon: Jose Reid DO Procedure: Preop Diagnosis: Right Carpal Tunnel Syndrome Post-op diagnosis: Same Procedure done: 1. Right carpal tunnel release Surgeon: Jose Reid DO Anesthesia: MAC (Local) Estimated blood loss: 2 mL Tourniquet time 6 minutes IV fluids: See anesthesia record Complications: None Findings: See operative report narrative Condition: stable Disposition: same day Brief History: Patient is a pleasant 64 year-old female with right carpal tunnel syndrome. Patient has been worked up in the outpatient setting findings and physical examination consistent with this. Patient nerve conduction studies consistent with carpal tunnel syndrome. We detailed out patient's risk benefits complication alternatives with surgical and nonsurgical treatment options. Through shared decision making, patient agrees to proceed with surgical intervention of the right carpal tunnel release . Patient understands and agrees with current plan. All questions answered. Patient elects to proceed with surgical intervention with carpal tunnel release. Procedure: Patient seen and evaluated in the preoperative holding area. Consent was reviewed and signed with patient. Correct extremity was marked. Patient was seen evaluated by the anesthesia department once cleared for surgery was brought back to the operative suite. Patient was kept on [facility] in supine position all bony prominences were well-padded patient properly secured to the bed. Right upper extremity was then placed onto an armboard. A nonsterile tourniquet was applied to the RIght upper arm. Patient underwent anesthesia per the anesthesia department. Patient's Right upper extremity was then prepped and draped in standard orthopedic fashion. Final timeout performed. Patient received appropriate preoperative antibiotics. Under sterile aseptic technique patient received local anesthesia over the preplanned carpal tunnel incision site. Esmarch was used to exsanguinate the Right upper extremity and tourniquet was insufflated to 250 mmHg. A standard mini open Right carpal tunnel incision was made. Starting distally at Sinclair's cardinal line in line with the fourth ray extending proximally distal to the wrist crease centered over the carpal tunnel. Sharp scalpel incision was made through skin and subcutaneous tissue. Self-retaining retractor was placed and the palmar fascia was identified. This was then split longitudinally and direct visualization of the transverse carpal ligament was then made. I then utilizing scalpel feathered through the transverse carpal ligament until I entered the floor of the transverse carpal tunnel ligament into the carpal tunnel. Next I switched to dissection scissors and completed my release of the transverse carpal ligament distally with care to protect the recurrent motor branch. I completely released into the palmar fat and until no entrapment was noted distally. Care was made to protect the superficial palmar arch during my distal dissection. Next I utilized a nasal speculum placed on top of the transverse carpal ligament and utilize this to retract the subcutaneous fat and tissue and under direct loupe magnification was able to identify the transverse carpal ligament. Next I then protected the contents of the carpal tunnel and subsequently utilizing dissection scissors under loupe magnification completely released the transverse carpal ligament proximally into the antebrachial fascia. Care was made to protect the palmar cutaneous branch by keeping my scissors curved ulnarly. Once completely released, I then placed my [place] and had appropriate decompression of the carpal tunnel proximally as well as distally. I then inspected the contents of the carpal tunnel which showed an hourglass shape of the median nerve showing its compression. No masses were noted. Tendons appeared healthy. Wound was then thoroughly irrigated. Tourniquet deflated. Hemostasis satisfactory with bipolar electrocautery. I then closed the incision with interrupted nylon stitches. Xeroform 4 x 4's and a bulky soft dressing was applied. Patient was then awakened from anesthesia and taken to PACU in stable condition. Patient tolerated procedure without complications. Disposition: Patient taken to PACU in stable condition recovering well. Dressing clean dry and intact. Patient will receive appropriate discharge instructions as well as pain medication postoperatively. Patient to follow-up with me in the office in 2 weeks. They understand they may be weightbearing as tolerated to the right hand. Patient should keep incision clean dry and intact. Patient understands if any questions or concerns may contact the office.?
[2024-02-23 09:10] LABS: Glucose Point of Care 211 mg/dL (70-110)
--- NOTE | 2024-02-23 10:16 | ANE.PACU2 ---
Inpatient post-anesthesia follow up: Airway intact: Yes Vital signs: Temperature 98.6 F Pulse Rate 96 Respiratory Rate 18 Blood Pressure 100/62 Pulse Oximetry 94 Oxygen Delivery Me thod Room Air Oxygen Flow Rate Fraction of Inspir ed Oxygen Hydration adequate: Yes Nausea and vomiting: No Pain level: 1 Mental status: Baseline
== END 2024-02-23 10:16 | disposition home or self-care (01) ==
PROVIDERS: PCP Internal Medicine; Visit Provider Student in an Organized Health Care Education/Training Program
PROC: (CPT 64721; principal; 2024-02-23 08:30)
DX: G56.01 Carpal tunnel syndrome, right upper limb (principal); I10 Essential (primary) hypertension; E11.9 Type 2 diabetes mellitus without complications; Z79.84 Long term (current) use of oral hypoglycemic drugs; Z79.82 Long term (current) use of aspirin
CPT/HCPCS: 64721 ×2; 36416; 82962; J0131; J0690; J1885; J2704; J2795; J3010; J3490; J7030

== ENCOUNTER → 2024-03-09 08:34 | Outpatient (BNVA) | payer MEDICARE, SELFPAY | PROVIDERS: PCP Internal Medicine; Visit Provider Physician Assistant | DX: Z98.890 Other specified postprocedural states (principal) | CPT/HCPCS: 99024 ==